=== PATIENT | male | born 1955 | race Caucasian/White ===

== ENCOUNTER 2020-10-10 06:16 | Day surgery (SDC) | payer BC, OTHER ==
[2020-10-07 12:15] VITALS: BMI 27.8
[~2020-10-10 06:16] MED LIST: LACTATED RINGERS 1,000 ML IV SCH; MOXIFLOXACIN HCL 0.5% DROPS 3 ML BTL OP PRN; TETRACAINE 0.5% OPHTH (PF) DROPS 4 ML BTL OP PRN; TIMOLOL 0.5% OPHTH DROPS 5 ML BTL OP PRN
[2020-10-10] MEDS: CYCLOPENTOLATE 1% OPHTH SOLN 2 ML BTL OP PRN ×3 (06:42→07:00)
[2020-10-10] MEDS: PHENYLEPHRINE 2.5% OPHTH DRP 2ML OP PRN ×3 (06:46→07:03)
[2020-10-10 06:47] VITALS: TEMP 97.7
[2020-10-10 07:02] LABS: Glucose,Whole Blood 150 mg/dL (75-99)
[2020-10-10] MEDS ORDERED: fentaNYL (PF) 50 MCG/ML 2 ML AMP ONE (07:28)
[2020-10-10] MEDS ORDERED: MIDAZOLAM 2 MG/2 ML VIAL ONE (07:28)
[2020-10-10] MEDS ORDERED: BALANCED SALT IRRIG SOLN COMB2 15 ML IRRIG.SOLN INTRAOCULA ONE (07:47)
[2020-10-10] MEDS ORDERED: DUOVISC KIT (GREEN BOX) INTRAOCULA ONE (07:49)
[2020-10-10] MEDS ORDERED: LIDOCAINE 1% (PF) 10MG/ML VIAL MISCELLANE ONE (07:50)
[2020-10-10] MEDS ORDERED: EPINEPHrine (PF) 0.3 ML in BALANCED SALT IRRIG SOLN COMB2 500 ML IRRIGATION ONE (07:51)
--- NOTE | 2020-10-10 07:58 | P.OP ---
Date of Procedure: 10/10/20 Preoperative Diagnosis: NS & PSC Postoperative Diagnosis: same Procedure(s) Performed: PIOL, OS Implants: [id number] 16.50 Anesthesia: MAC Surgeon: Galen Mckeon Pathology: none sent Condition: stable Disposition: same day Indications for Procedure: blurry vision Operative Findings: no complications
[2020-10-10 08:02] VITALS: RESP 16
[2020-10-10 08:19] VITALS: BP 127/84; PULSE 77
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
== END 2020-10-10 08:29 | disposition home or self-care (01) ==
LOC: OR 06:16
PROVIDERS: ATTEND Ophthalmology
DX: E11.36 Type 2 diabetes mellitus with diabetic cataract (principal); H25.12 Age-related nuclear cataract, left eye; H40.222 Chronic angle-closure glaucoma, left eye; H35.3121 Nonexudative age-related macular degeneration, left eye, early dry stage; H25.042 Posterior subcapsular polar age-related cataract, left eye; H25.11 Age-related nuclear cataract, right eye; H53.8 Other visual disturbances; G47.33 Obstructive sleep apnea (adult) (pediatric); K21.9 Gastro-esophageal reflux disease without esophagitis; I10 Essential (primary) hypertension; J45.909 Unspecified asthma, uncomplicated; M19.90 Unspecified osteoarthritis, unspecified site; I51.9 Heart disease, unspecified; Z79.84 Long term (current) use of oral hypoglycemic drugs; Z79.899 Other long term (current) drug therapy; Z82.61 Family history of arthritis; Z83.3 Family history of diabetes mellitus; Z82.49 Family history of ischemic heart disease and other diseases of the circulatory system; Z82.3 Family history of stroke; Z80.9 Family history of malignant neoplasm, unspecified; Z86.73 Personal history of transient ischemic attack (TIA), and cerebral infarction without residual deficits
CPT/HCPCS: 66984; L8610; C1780; J2250; J0171; J3010; J2001

== ENCOUNTER 2020-10-22 11:53 | Day surgery (SDC) | payer OTHER ==
[2020-10-20 08:43] VITALS: BMI 27.8
[~2020-10-22 11:53] MED LIST changes: +LIDOCAINE 1% (10MG/ML) FOR IV START INTRADERMA PRN
[2020-10-22 12:10] VITALS: RESP 16; TEMP 98.2
[2020-10-22] MEDS: CYCLOPENTOLATE 1% OPHTH SOLN 2 ML BTL OP PRN ×3 (12:16→12:31)
[2020-10-22] MEDS: PHENYLEPHRINE 2.5% OPHTH DRP 2ML OP PRN ×3 (12:19→12:34)
[2020-10-22] MEDS ORDERED: LIDOCAINE 1% (10MG/ML) FOR IV START INTRADERMA ONE (12:22)
[2020-10-22 12:24] LABS: Glucose,Whole Blood 138 mg/dL (75-99)
[2020-10-22] MEDS ORDERED: MIDAZOLAM 2 MG/2 ML VIAL ONE (12:31)
[2020-10-22] MEDS ORDERED: fentaNYL (PF) 50 MCG/ML 2 ML AMP ONE (12:31)
[2020-10-22] MEDS ORDERED: HYALURONATE SODIUM INTRAOCULAR 1 EACH SYRINGE (12MG/ML) INTRAOCULA ONE (12:47)
[2020-10-22] MEDS ORDERED: LIDOCAINE 1% (PF) 10MG/ML VIAL MISCELLANE ONE (12:47)
[2020-10-22] MEDS ORDERED: BALANCED SALT IRRIG SOLN COMB2 15 ML IRRIG.SOLN IRRIGATION ONE (12:47)
[2020-10-22] MEDS ORDERED: EPINEPHrine (PF) 0.3 ML in BALANCED SALT IRRIG SOLN COMB2 500 ML IRRIGATION ONE (12:51)
--- NOTE | 2020-10-22 13:01 | P.OP ---
Date of Procedure: 10/22/20 Preoperative Diagnosis: NS Postoperative Diagnosis: same Procedure(s) Performed: PIOL, OD Implants: [id number] 15.00 Anesthesia: MAC Surgeon: Galen Mckeon Pathology: none sent Condition: stable Disposition: same day Indications for Procedure: blurry vision Operative Findings: no complications
[2020-10-22 13:35] VITALS: BP 121/73; PULSE 72
--- NOTE | 2020-10-22 19:49 | OP ---
OPERATIVE REPORT DATE OF SURGERY: 10/22/2020 PROCEDURE: Phacoemulsification of cataract and intraocular lens implant of the right eye. PREOPERATIVE DIAGNOSES: Nuclear sclerosis and exposure to Flomax. 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 SURGEON: Dr. Galen Mckeon. ANESTHESIA: Topical. ESTIMATED BLOOD LOSS: None. SPECIMEN TAKEN: None. NARRATIVE: After obtaining the appropriate consent, the patient was brought to the operating room. There he was placed under cardiac monitoring, prepped and draped in the usual sterile manner. He was approached from his right temporal side, and at the 11 o'clock position an MVR blade was used to create a paracentesis port. Through this opening 1% xylocaine MPF with epinephrine MPF 1:1000 and balanced salt solution in a ratio of 1:2:1 was injected into the anterior chamber. This was followed by stabilization of the anterior chamber with Amvisc. At the 9 o'clock position a 2.5 mm keratome was used to create a self-sealing corneal flap incision. It was noted to this point in time, though the eye remained reasonably well dilated, that there were indications that the stroma of the iris was following the flow of instrumentation in and out of the eye. Therefore a 7 mm Malyugin ring was used and inserted on the pupillary sphincter without any difficulty. This was followed by beginning a capsulorrhexis tear with a cystotome which was then completed using the Utrata forceps. Hydrodissection and hydrodelineation of the lens was accomplished with balanced salt solution. Phacoemulsification of the lens utilizing phaco chop was accomplished in 7.25 seconds at 8% power. Additional medication mix was instilled into the anterior chamber. This was followed by removal of the remaining cortex under irrigation and aspiration as well as careful polishing of the posterior capsule in the capsule vacuum mode. Additional Amvisc was then used to stabilize the capsular bag and a Bausch and Lomb MX 60E 15.0 diopters posterior chamber intraocular lens was then inserted into the capsular bag without difficulty. The Malyugin ring was disinserted from the pupillary sphincter and removed from the anterior chamber. This was followed by removal of the remaining viscoelastic from in and around the intraocular lens as well as the anterior chamber under irrigation and aspiration. The wound was confirmed watertight and he then received 2 drops of 0.5% timolol followed by 2 drops of moxifloxacin, was then lightly patched and shielded in the usual manner. There were no complications from the procedure. He tolerated the procedure well and was returned to Outpatient Recovery in good condition. ANGÉLICA / LYLE: [id number] /
== END 2020-10-22 13:49 | disposition home or self-care (01) ==
LOC: OR 11:53
PROVIDERS: ATTEND Ophthalmology
DX: H25.11 Age-related nuclear cataract, right eye (principal); H40.222 Chronic angle-closure glaucoma, left eye; H35.3121 Nonexudative age-related macular degeneration, left eye, early dry stage; Z96.1 Presence of intraocular lens; H21.81 Floppy iris syndrome; T44.6X5A Adverse effect of alpha-adrenoreceptor antagonists, initial encounter; I11.9 Hypertensive heart disease without heart failure; Z86.73 Personal history of transient ischemic attack (TIA), and cerebral infarction without residual deficits; J45.909 Unspecified asthma, uncomplicated; M06.9 Rheumatoid arthritis, unspecified; K21.9 Gastro-esophageal reflux disease without esophagitis; G47.33 Obstructive sleep apnea (adult) (pediatric); M19.90 Unspecified osteoarthritis, unspecified site; E11.9 Type 2 diabetes mellitus without complications; J30.2 Other seasonal allergic rhinitis; K92.9 Disease of digestive system, unspecified; Z83.518 Family history of other specified eye disorder; Z82.61 Family history of arthritis; Z82.49 Family history of ischemic heart disease and other diseases of the circulatory system; Z84.1 Family history of disorders of kidney and ureter; Z84.0 Family history of diseases of the skin and subcutaneous tissue; Z79.84 Long term (current) use of oral hypoglycemic drugs; Z79.52 Long term (current) use of systemic steroids; Z79.899 Other long term (current) drug therapy; Z88.6 Allergy status to analgesic agent; Z91.09 Other allergy status, other than to drugs and biological substances
CPT/HCPCS: 66984; C1780; J2250; J0171; J3010; J2001

== ENCOUNTER 2021-11-11 08:56 | Day surgery (SDC) | payer OTHER ==
[2021-10-19 14:43] VITALS: BMI 29.1
[~2021-11-11 08:56] MED LIST changes: +ACETAMINOPHEN TAB 500 MG TAB PO PRN; +HEPARIN SODIUM,PORCINE/PF 5,000 UNIT/0.5 ML SYRINGE SQ PRN; +HYDROmorphone 0.5 MG/0.5 ML SYRINGE IVP PRN; -MOXIFLOXACIN HCL 0.5% DROPS 3 ML BTL OP PRN; +ONDANSETRON 4 MG/2 ML VIAL IVP ONE; +Pre Op ABX Message 1 EACH MISC MISCELLANE ONE; -TETRACAINE 0.5% OPHTH (PF) DROPS 4 ML BTL OP PRN; -TIMOLOL 0.5% OPHTH DROPS 5 ML BTL OP PRN
[2021-11-11 09:47] LABS: Glucose,Whole Blood 172 mg/dL (75-99)
[2021-11-11] MEDS ORDERED: SUCCINYLCHOLINE CHLORIDE 100 MG/5 ML SYR IV ONE (10:21)
[2021-11-11] MEDS ORDERED: MIDAZOLAM 2 MG/2 ML VIAL ONE (10:21)
[2021-11-11] MEDS ORDERED: PROPOFOL 10 MG/ML 20 ML VIAL IV ONE (10:21)
[2021-11-11] MEDS ORDERED: fentaNYL (PF) 50 MCG/ML 2 ML AMP ONE (10:21)
[2021-11-11] MEDS ORDERED: LIDOCAINE 2% INJ 20 MG/ML (2 ML VIAL) ONE (10:21)
[2021-11-11] MEDS ORDERED: HYDROmorphone (PF) 1 MG/ML ONE (10:21)
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
[2021-11-11] MEDS ORDERED: GELATIN SPONGE,ABSORB (LARGE) 1 EACH SPONGE TOPICAL ONE ×2 (11:08→11:30)
[2021-11-11] MEDS ORDERED: BUPIVACAINE (PF) 0.25% 30 ML VIAL SQ ONE ×2 (11:09→11:25)
[2021-11-11] MEDS ORDERED: SODIUM CHLORIDE 0.9% 100 ML with ceFAZolin 2,000 MG IV ONE ×2 (11:25)
[2021-11-11] MEDS ORDERED: LACTATED RINGERS 1,000 ML IV ONE (11:37)
--- NOTE | 2021-11-11 12:02 | P.OP ---
Date of Procedure: 11/11/21 Preoperative Diagnosis: Internal and external hemorrhoids Postoperative Diagnosis: Internal and external hemorrhoids Procedure(s) Performed: Internal and external hemorrhoidectomy Anesthesia: PAM Surgeon: Joe Ramos Pathology: other (Internal and external hemorrhoids) Condition: stable Disposition: PACU Description of Procedure: The patient's placed on the operating table in the prone position. He received general endotracheal tube anesthesia. His anus was prepped and draped usual sterile fashion. The patient had large internal and external hemorrhoids. The aorta was placed anus. The left lateral hemorrhoidal column was grasped with a Allis clamp and using the Harmonic scissors the rectus performed. Next the right anterior and right posterior hemorrhoidal columns were excised in identical fashion. The specimens of pathology. There is no bleeding in the anus. The anus was packed with Gelfoam. Patient top she will was sent to recovery room in stable condition.
[2021-11-11 12:05] VITALS: TEMP 97
[2021-11-11 15:27] VITALS: BP 120/71; PULSE 80; RESP 20
--- NOTE | 2021-11-11 17:35 | P.PCN ---
Date of Procedure: 11/11/21 Preoperative Diagnosis: Vesical neck contracture Postoperative Diagnosis: Same Procedure(s) Performed: Cystoscopy, urethral dilation, Vidal catheter insertion Anesthesia: none Surgeon: Kevin Marte Estimated Blood Loss (ml): 0 Pathology: none sent Condition: stable Disposition: no change Indications for Procedure: The patient is a 65-year-old white male who underwent a laser TURP by Dr. Dodson in [place] in 2013. He feels that he voids well. He underwent internal and external hemorrhoidectomy earlier today but was unable to void postoperatively. Attempts by the nursing staff to insert a Vidal catheter were unsuccessful. Operative Findings: Intraprostatic scarring/vesical neck contracture. Description of Procedure: The patient lied supine in the recovery room. The external genitalia was prepped and draped sterilely. An unsuccessful attempt was made to pass a 12- Maltese coud-tip Viadl catheter. Likewise, a 4-Maltese spiral tip filiform could not be advanced into the bladder. Cystoscopy was performed using the 16-Maltese Olympus flexible cystoscope. The anterior urethra appeared normal. Obstruction was encountered within the prostatic urethra, likely due to intraprostatic scarring. The cystoscope could not be advanced through this area of obstruction. A 0.035 inch Glidewire was passed through the cystoscope, and it was possible to advance it into the bladder where it coiled. The cystoscope was removed. The tip of a 12-Maltese catheter was incised, and it was passed over the wire. However, it could not be advanced into the bladder. Therefore, ureteral S-dilators were used to dilate the vesical neck to 16-Maltese. It was then possible to pass the 12-Maltese catheter over the wire and into the bladder. 1500 mL of clear urine then drained from the bladder.
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
== END 2021-11-11 17:00 | disposition home or self-care (01) ==
LOC: OR 08:56
PROVIDERS: ATTEND Surgery
DX: N32.0 Bladder-neck obstruction (principal); K64.4 Residual hemorrhoidal skin tags; K64.8 Other hemorrhoids; E11.9 Type 2 diabetes mellitus without complications; G47.30 Sleep apnea, unspecified; I10 Essential (primary) hypertension; J45.909 Unspecified asthma, uncomplicated; K21.9 Gastro-esophageal reflux disease without esophagitis; M06.9 Rheumatoid arthritis, unspecified; Z79.1 Long term (current) use of non-steroidal anti-inflammatories (NSAID); Z79.84 Long term (current) use of oral hypoglycemic drugs; Z87.891 Personal history of nicotine dependence
CPT/HCPCS: 52281; 46260; 88304; C1769; J2250; J2405; J0690; J3010; J1170; J0330; J2704; J1644; J2001